=== PATIENT | female | born 1945 | race Caucasian/White ===

== ENCOUNTER → 2017-06-07 | Outpatient (CLI) | payer OTHER ==
[~2017-06-07] MED LIST: ALBUTEROL PO; AZIT500T4 PO; ESTR100P26 MC; ESTR1TAB17 PO; LATA2.5D2 OP; LINE600T6 PO; PROG100C6 PO; ROSU10TA35 PO; THYR60TA2 PO
== END | disposition home or self-care (01) ==
LOC: RAH 12:24
PROVIDERS: ATTEND Internal Medicine
DX: J20.9 Acute bronchitis, unspecified (principal)
CPT/HCPCS: 71046